=== PATIENT | male | born 1960 ===

== ENCOUNTER 2018-05-22 06:22 | Day surgery (SDC) | payer OTHER ==
--- NOTE | 2018-05-21 12:11 | HP ---
AMAENDED REPORT NOW INCLUDES COSIGNER DESIGNATION PREOPERATIVE HISTORY AND PHYSICAL: DATE OF ADMISSION/SURGERY: 05/22/18 DATE OF OFFICE VISIT/ENCOUNTER: 05/06/18 ATTENDING SURGEON: Selina Chavira MD.* (DICTATED BY OMAR SOLO) PROCEDURE: Left wrist carpal tunnel release. CHIEF COMPLAINT: Numbness and tingling, left hand. HISTORY OF PRESENT ILLNESS: This is a 57-year-old male who complains of numbness and tingling in both hands, worse on the left than on the right, ongoing for at least a year. His primary care doctor, Dr. Tolentino ordered a nerve conduction study, which showed severe carpal tunnel on the left and moderate on the right. He has been wearing wrist braces at nighttime that have been somewhat helpful, but the symptoms are present pretty much constantly now and are quite bothersome. He denies any injury. He would like to proceed with a carpal tunnel release on the left at this time. PAST MEDICAL HISTORY: Hypertension, hypercholesterolemia, anxiety. PAST SURGICAL HISTORY: left knee arthroscopy. The patient denies any anesthesia problems. CURRENT MEDICATIONS: Atorvastatin calcium 10 mg daily. ALLERGIES: CONTRAST DYE causes hives. FAMILY MEDICAL HISTORY: Diabetes, heart disease, and hypertension. 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 He is a former smoker, but quit approximately 38 years ago. Prior to that, he smoked a pack per day for 4 years. He denies recreational drug use. He drinks alcohol on occasions. REVIEW OF SYSTEMS: Negative for general, cephalic, cardiovascular, respiratory , GI, , other musculoskeletal, integumentary, endocrine, neurologic, and hematologic symptoms. Infectious Disease: Negative for MRSA, hepatitis C, HIV. PHYSICAL EXAMINATION GENERAL: Well-developed, well-nourished 57-year-old male, in no acute distress. VITAL SIGNS: Height 5 feet 9.5 inches, weight 261 pounds, pulse rate 58, blood pressure 132/90. HEENT: Normocephalic, atraumatic. Pupils are equal, round, and reactive to light and accommodation. Extraocular movements are intact. Throat is clear. NECK: Supple. No palpable lymph nodes. PULMONARY: Lungs are clear to auscultation. CARDIOVASCULAR: Regular rate and rhythm. S1, S2. No murmurs, rubs, or gallops. No edema. ABDOMEN: Positive bowel sounds, soft, NT NEUROLOGICAL: A and O x 3, CN II - XII intact MUSCULOSKELETAL: L hand - no thenar wasting, weakness with thumb abduction, positive tinels sign and median nerve compression. Good motion in wrist and fingers. Sensation intact throughout hand. Impression: L CTS Plan: Pt is scheduled to undergo a left carpal tunnel release with Dr. Chavira on 05/22/2018. He will return 10 days after surgery for follow-up and suture removal. A prescription for Ultracet was sent to pts pharmacy for post-op pain management. OMAR SOLO [id number]/[facility] #: [id number] MTDD
[~2018-05-22 06:22] MED LIST: Buffered Lidocaine 1% SYRIN* 1 ML/SYRINGE INTRADERM ONE; Famotidine IV* 10 MG/ML 2 ML (20 mg) IV ONE; Lactated Ringers 1000 ML Bag* 1,000 ML IV SCH
[2018-05-22] MEDS ORDERED: Famotidine IV* 10 MG/ML 2 ML (20 mg) ONE (06:42)
[2018-05-22] MEDS ORDERED: Lidocaine 1% INJ* 10 MG/ML 30 ML SDV ONE (07:05)
[2018-05-22] MEDS ORDERED: fentaNYL* 50 MCG/ML 2 ML VIAL (100 MCG VIAL) ONE (07:24)
[2018-05-22] MEDS ORDERED: Midazolam* 1 MG/ML 5 ML VIAL (5 MG) ONE (07:24)
[2018-05-22] MEDS ORDERED: Ondansetron INJ* 2 MG/ML VIAL ONE (07:33)
[2018-05-22] MEDS ORDERED: Ketorolac INJ* 30 MG/ML 1 ML VIAL ONE (07:33)
[2018-05-22] MEDS ORDERED: Lidocaine 2% PF * 5 ML VIAL ONE (07:33)
[2018-05-22] MEDS ORDERED: Propofol* 10 MG/ML 20 ML BTL ONE (07:33)
[2018-05-22 08:02] VITALS: BP 131/79
[2018-05-22] MEDS ORDERED: DiMENhydriNATE IV* 50 MG/ML VIAL IV PUSH PRN (08:10)
[2018-05-22] MEDS ORDERED: Acetaminophen TAB* 325 MG PO PRN (08:10)
--- NOTE | 2018-05-22 10:12 | OP ---
CC: Selina Chavira MD OPERATIVE NOTE: DATE OF OPERATION: 05/22/18 DATE OF : 56 SURGEON: Selina Chavira MD MANAGER OF COMPLIANCE: OMAR Snell ANESTHESIA: Local MAC. PRE-OP DIAGNOSIS: Left carpal tunnel syndrome. POST-OP DIAGNOSIS: Left carpal tunnel syndrome. OPERATIVE PROCEDURE: Left carpal tunnel release. ESTIMATED BLOOD LOSS: 0. TOURNIQUET TIME: About 5 minutes. INDICATION FOR PROCEDURE: Keith is a 57-year-old man with numbness and tingling in the median nerve distribution of his left hand. He presents for left carpal tunnel release. DESCRIPTION OF PROCEDURE: The patient was brought to the operating room, was given a sedation anesth etic and a local infiltration of 10 cc of 1% plain lidocaine in the palm of his left hand. The skin of his left hand and forearm was prepped and draped in the usual sterile fashion. The hand and forea rm were exsanguinated and the tourniquet elevated to 250 mmHg. A longitudinal incision was made in t he palm in line with the ring finger. We dissected through the subcutaneous tissue, down to the morris sverse carpal ligament. The ligament was divided sharply with the knife and then more proximally wit h the scissors. The nerve was dissected free from the surrounding tissue and there was an area of mo derate compression at the mid portion of the ligament. The wound was irrigated and the skin edges we re reapproximated with 4-0 nylon suture. The wound was dressed with Xeroform, 4x4, Webril, and an Ac e wrap. The patient tolerated the procedure well and was brought to the recovery room in good condit ion. [id number]/[facility] #: [id number]
== END 2018-05-22 08:24 | disposition home or self-care (01) ==
LOC: OREAST 06:22
PROVIDERS: ATTEND Orthopaedic Surgery
DX: G56.02 Carpal tunnel syndrome, left upper limb (principal); I10 Essential (primary) hypertension; E78.5 Hyperlipidemia, unspecified; F41.9 Anxiety disorder, unspecified
CPT/HCPCS: J1885; J2250; J2405; J2704; J3010

== ENCOUNTER 2018-06-26 08:31 | Day surgery (SDC) | payer OTHER ==
--- NOTE | 2018-06-24 13:19 | HP ---
Amended report to enter cosigning physician. PREOPERATIVE HISTORY AND PHYSICAL: DATE OF SURGERY/ADMISSION: 06/26/18 DATE OF OFFICE VISIT/ENCOUNTER: 06/24/18 ATTENDING SURGEON: Selina Chavira MD* (dictated by OMAR Snell). PROCEDURE: Right wrist carpal tunnel release. HISTORY OF PRESENT ILLNESS: This is a 57-year-old male who complains of numbness and tingling in his right hand, ongoing for at least a year. He had a nerve conduction study, which showed moderate carpal tunnel syndrome on the right. He has been wearing wrist brace at night and that has been somewhat helpful, but the symptoms are present pretty much constantly now and are quite bothersome. He denies any injury. He recently had a left wrist carpal tunnel release and would now like to proceed with a right wrist carpal tunnel release. PAST MEDICAL HISTORY: 1. Hypertension. 2. Hypercholesterolemia. 3. Anxiety. PAST SURGICAL HISTORY: Left knee arthroscopy. The patient denies any anesthesia problems. CURRENT MEDICATIONS: Atorvastatin calcium 10 mg daily. ALLERGIES: CONTRAST DYE causes hives. FAMILY MEDICAL HISTORY: Diabetes, heart disease, hypertension. 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 He is a former smoker, but quit approximately 38 years ago. Prior to that, he smoked a pack per day for 4 years. He denies recreational drug use. He drinks alcohol on occasion. REVIEW OF SYSTEMS: Negative for general, cephalic, cardiovascular, respiratory , GI, , other musculoskeletal, integumentary, endocrine, neurologic, and hematologic symptoms. Infectious Disease: Negative for MRSA, hepatitis C, HIV. PHYSICAL EXAMINATION GENERAL: Well-developed, well-nourished 57-year-old male, in no acute distress. VITAL SIGNS: Height 5 feet 9-1/2 inches, weight 254 pounds, pulse rate 78, blood pressure 140/78. HEENT: Normocephalic, atraumatic. Pupils are equal, round, and reactive to light and accommodation. Extraocular movements are intact. Throat is clear. NECK: Supple. No palpable lymph nodes. PULMONARY: Lungs are clear to auscultation bilaterally. CARDIOVASCULAR: Regular rate and rhythm. S1, S2. No murmurs, rubs, or gallops. No edema. ABDOMEN: Positive bowel sounds. Soft, nontender. NEUROLOGIC: Alert and oriented x3. Cranial nerves II through XII are intact. MUSCULOSKELETAL: His right wrist and hand, there is no visible thenar wasting. He has weakness with thumb abduction and a positive median nerve compression test. He has good motion in his wrist and his fingers and sensation is intact throughout the hand. IMPRESSION: Right carpal tunnel syndrome. PLAN/RECOMMENDATIONS: The patient is scheduled to undergo a right wrist carpal tunnel release with Dr. Chavira on 06/26/18. He will return 10 days after surgery for a followup and suture removal. He will use Ultracet for postoperative pain management. OMAR SNELL [id number]/[facility] #: [id number] JYOTHI
[~2018-06-26 08:31] MED LIST changes: +Acetaminophen TAB* 325 MG ONE; +Acetaminophen TAB* 325 MG PO ONE; -Famotidine IV* 10 MG/ML 2 ML (20 mg) IV ONE; +Lidocaine 1% INJ* 10 MG/ML 30 ML SDV ONE
[2018-06-26] MEDS ORDERED: Naloxone* 0.4 MG/ML 1 ML VIAL IV PRN (09:37)
[2018-06-26] MEDS ORDERED: Ondansetron INJ* 2 MG/ML VIAL IV PRN (09:37)
[2018-06-26] MEDS ORDERED: Propofol* 10 MG/ML 20 ML BTL ONE (10:13)
[2018-06-26] MEDS ORDERED: Lidocaine 2% PF * 5 ML VIAL ONE (10:13)
[2018-06-26] MEDS ORDERED: Midazolam* 1 MG/ML 2 ML VIAL (2 MG) ONE (10:13)
[2018-06-26] MEDS ORDERED: Ketorolac INJ* 30 MG/ML 1 ML VIAL ONE (10:15)
[2018-06-26] MEDS ORDERED: fentaNYL* 50 MCG/ML 2 ML VIAL (100 MCG VIAL) ONE (10:17)
[2018-06-26 11:07] VITALS: BP 132/90
--- NOTE | 2018-06-26 13:38 | OP ---
DATE OF OPERATION: 06/26/18 [facility] DATE OF : 56 SURGEON: Selina Chavira MD HOUSE WORKER GENERAL: OMAR Snell ANESTHESIA: Local MAC. PRE-OP DIAGNOSIS: Right carpal tunnel syndrome. POST-OP DIAGNOSIS: Right carpal tunnel syndrome. OPERATIVE PROCEDURE: Right carpal tunnel release. ESTIMATED BLOOD LOSS: Zero. TOURNIQUET TIME: About 10 minutes. INDICATIONS FOR PROCEDURE: Keith is a 57-year-old man who has numbness and tingling in the median nerve distribution of his right hand. He presents for right carpal tunnel release. DESCRIPTION OF PROCEDURE: The patient was brought to the operating room, was given a sedation anesthetic and a local infiltration of 10 cc of 1% plain lidocaine in the palm of his right hand. Skin of his right hand and forearm was prepped and draped in the usual sterile fashion. The hand and forearm were exsanguinated and the tourniquet elevated to 250 mmHg. A longitudinal incision was made in the palm in the line with the ring finger. We dissected through the subcutaneous tissue down to the transverse carpal ligament. The ligament was divided sharply with a knife and then more proximally with the scissors. The nerve was dissected free from the surrounding tissue, and there is an area of moderate compression at the mid portion of the ligament. The wound was irrigated and the skin edges reapproximated with 4-0 nylon suture. The wound was dressed with Xeroform, 4x4, Webril, and an Bryon wrap. The patient tolerated the procedure well and was brought to the recovery room in good condition. [id number]/[facility] #: [id number] [facility]
== END 2018-06-26 11:23 | disposition home or self-care (01) ==
LOC: OREAST 08:31
PROVIDERS: ATTEND Orthopaedic Surgery
DX: G56.01 Carpal tunnel syndrome, right upper limb (principal); I10 Essential (primary) hypertension; E78.00 Pure hypercholesterolemia, unspecified; F41.9 Anxiety disorder, unspecified; Z87.891 Personal history of nicotine dependence; G47.33 Obstructive sleep apnea (adult) (pediatric)
CPT/HCPCS: A9270-GY; J1885; J2250; J2704; J3010